=== PATIENT | female | born 1985 | race American Indian/Alaskan Native ===

== ENCOUNTER 2018-12-11 23:52 | Emergency (ER) | payer OTHER ==
[2018-12-12] MEDS ORDERED: IBUPROFEN PO ONE (02:32)
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
--- NOTE | 2018-12-12 03:05 | XRay Report ---
Cervical spine 3 views Indication: back pain patient in c-collar Findings: There is no fracture, subluxation, or other acute radiographic abnormality of the cervical spine. The prevertebral soft tissues are unremarkable. Disc space heights are maintained. Signer Name: Kwame Miller MD Signed: 12/12/2018 3:00 AM Workstation Name: [id number]
[2018-12-12 03:30] VITALS: BP 107/57
== END 2018-12-12 03:25 | disposition home or self-care (01) ==
LOC: ED 23:52
DX: S16.1XXA Strain of muscle, fascia and tendon at neck level, initial encounter (principal); Z87.891 Personal history of nicotine dependence; V49.49XA Driver injured in collision with other motor vehicles in traffic accident, initial encounter; Y93.89 Activity, other specified; Y92.488 Other paved roadways as the place of occurrence of the external cause; Y99.8 Other external cause status
CPT/HCPCS: 72040

== ENCOUNTER 2020-12-25 17:58 | Emergency (ER) | payer MEDICAID, OTHER ==
[2020-12-25 18:11] VITALS: BP 114/60
--- NOTE | 2020-12-25 20:21 | Emergency Department Report ---
ED Head Trauma HPI - General Chief complaint: Head Injury Stated complaint: HIT HEAD Time Seen by Provider: 12/25/20 20:10 Source: patient Mode of arrival: Ambulatory Limitations: No Limitations - History of Present Illness Initial comments: The patient was evaluated in the emergency department for symptoms described in the history of present illness. He/she was evaluated in the context of the global COVID-19 pandemic, which necessitated consideration that the patient might be at risk for infection with the virus that causes COVID-19. Institutional protocols and algorithms that pertain to the evaluation of patients at risk for COVID-19 are in a state of rapid change based on information released by regulatory bodies including the CDC and federal and state organizations. These policies and algorithms were followed during the patient's care in the emergency department. Please note that these policies, procedures and recommendations changed on a rapid basis. 35-year-old -[place] female presents to the emergency room stating that she had hit her head on the corner of the door wipes playing with her niece. She states this happened about 515 this afternoon. Patient states that she had some dizziness and she felt that her vision was blurred. She denies any nausea no vomiting denies any loss of consciousness. Patient reports no history of head injuries in the past. Patient denies any past medical history currently takes no medications on a daily basis and is followed by primary care clinic. MD Complaint: head injury -: This evening Time: 17:15 Mechanism of Injury: other (Hit her head on the corner of a wall) Location: frontal Loss of Consciousness: no Previous Trauma to this Area: No Place: home Radiation: none Severity: mild Severity scale (0 -10): 4 Quality: aching Consistency: intermittent Other Injuries: none - Related Data Previous Rx's Medication Instructions Recorded Last Taken Type Ibuprofen [Motrin 600 MG tab] 600 mg PO Q8H PRN #30 tablet 12/12/18 Unknown Rx Allergies/Adverse reactions: Allergies Allergy/AdvReac Type Severity Reaction Status Date / Time No Known Allergies Allergy Unverified 12/12/18 02:32 ED Review of Systems ROS: Stated complaint: HIT HEAD Other details as noted in HPI Comment: All other systems reviewed and negative ED Past Medical Hx - Social History Smoking Status: Former Smoker Substance Use Type: None - Medications Home Medications: Home Medications Medication Instructions Recorded Confirmed Last Taken Type Ibuprofen [Motrin 600 MG tab] 600 mg PO Q8H PRN #30 tablet 12/12/18 Unknown Rx ED Physical Exam - General Limitations: No Limitations ED Course Vital Signs 12/25/20 18:08 Temperature 99.3 F Pulse Rate 72 Respiratory 16 Rate Blood Pressure 114/60 [Left] O2 Sat by Pulse 97 Oximetry - Medical Decision Making 35-year-old -[place] female presents to the emergency room stating that she had hit her head on the corner of the door wipes playing with her niece. She states this happened about 515 this afternoon. Patient states that she had some dizziness and she felt that her vision was blurred. She denies any nausea no vomiting denies any loss of consciousness. Patient reports no history of head injuries in the past. Patient denies any past medical history currently takes no medications on a daily basis and is followed by primary care clinic. Suture repair with Dermabond Steri-Strips. Discussed with patient to take Tylenol for pain management. Discussed with patient to rest for the next 24 to 48 hours. Given information on concussion syndrome. Critical care attestation.: If time is entered above; I have spent that time in minutes in the direct care of this critically ill patient, excluding procedure time. ED Disposition Clinical Impression: Minor head injury without loss of consciousness, Laceration of forehead without complication Disposition: 01 HOME / SELF CARE / HOMELESS Is pt being admited?: No Does the pt Need Aspirin: No Condition: Stable Instructions: Laceration Care, Adult, [id number], Sutures, Priyanka, or Adhesive Wound Closure, Concussion, Adult, [id number] Additional Instructions: Please keep wound clean and dry. Do not pick off the Steri-Strips as they will fall off when wound is healed. Tylenol for pain. No strenuous activities stay away from TV telephone computers for the next 24 to 48 hours allow your brain to rest. Return to the emergency room if worse headache, nausea vomiting lethargic or altered mental status. Referrals: Your, primary care provider [Other] - 3-5 Days Forms: Work/School Release Form(ED)
== END 2020-12-25 21:00 | disposition home or self-care (01) ==
LOC: ED 17:58
DX: S01.81XA Laceration without foreign body of other part of head, initial encounter (principal); Z87.891 Personal history of nicotine dependence; W22.01XA Walked into wall, initial encounter; Y93.89 Activity, other specified; Y92.89 Other specified places as the place of occurrence of the external cause; Y99.8 Other external cause status
CPT/HCPCS: 99282